=== PATIENT | female | born 1945 | race Caucasian/White ===

== ENCOUNTER 2019-11-21 10:36 | Emergency (ER) | payer MEDICARE, BC, SELFPAY ==
--- NOTE | 2019-11-21 10:50 | DI.RAD.S_ITS ---
PROCEDURE: XR WRIST RT MIN 3V INDICATIONS: deformity TECHNIQUE: 3 views of the wrist were acquired. COMPARISON: None. FINDINGS: Bones: There is a comminuted intra-articular fracture identified involving the distal radial metaphysis. Dorsal impaction is present of the distal fracture fragment. There is slight offset of the articular surface near the radial styloid by approximately 2 mm. A comminuted fracture also is evident involving the distal ulna. No dislocations or suspicious osseous lesions are evident. Soft tissues: No suspicious soft tissue calcifications. IMPRESSION: Comminuted intra-articular fractures of the distal radius and ulna. Dictated by: Eulogoi Vasquez M.D. on 11/21/2019 at 10:26 Approved by: Eulogio Vasquez M.D. on 11/21/2019 at 10:29
[2019-11-21 11:15] VITALS: BP 105/64; PULSE 72; RESP 16; TEMP 37.1; O2SAT 98
--- NOTE | 2019-11-21 11:54 | ED.UPPEXIN ---
HPI - Extremity Injury (Upper) <JUAN Theodore - Last Filed: 11/21/19 13:53> General Chief Complaint: Extremity Injury, Upper Stated Complaint: thinks fractured right wrist Time Seen by Provider: 11/21/19 11:05 Source: patient Mode of arrival: Ambulatory Limitations: no limitations History of Present Illness HPI narrative: The patient is a 74-year-old female nonsmoker with history of hernia who presents with a chief complaint of right wrist injury. She states that she slipped and fell on the way to the bathroom last night at approximately midnight. She took ibuprofen this morning. Her neighbor who is an EMT a retired orthopedic surgeon placed her wrist in a dmitri splint. She is right-hand dominant. She is adamant that this was a slip and fall. Denies any lightheadedness or dizziness. She denies any her head, any neck or back pain. Patient states that she has some pain in her right shoulder, but has full range of motion and is not worried about that. However she is concerned about a possible fracture of her right wrist. Patient later clarifies that she fell down multiple stairs, states approximately 1 flight or so. Modified trauma activated given patient's age, ground level fall with suspected injury. Patient ambulates into the emergency department. She states she has been NPO since this morning in case they need surgery. Related Data Home Medications Medication Instructions Recorded Confirmed MULTIVITAMIN (One Daily 1 tab PO QDAY #0 02/17/11 Multivitamin) [CALCIUM] 1,500 mg PO QDAY #0 02/17/11 Previous Rx's Medication Instructions Recorded oxycodone-acetaminophen [Percocet] 1 - 2 tab PO Q6HP PRN #20 tab 05/11/16 hydrocodone-acetaminophen 1 tab PO Q4-6H PRN #10 tab 11/21/19 ondansetron 4 mg PO Q6H PRN #20 tab 11/21/19 Allergies Allergy/AdvReac Type Severity Reaction Status Date / Time chlorhexidine Allergy Mild RASH Unverified 08/10/17 12:19 [From HIBICLENS] codeine [CODEINE] AdvReac Intermediate profuse Unverified 08/10/17 12:19 sweating irritability difficulty sleeping, dizzy Review of Systems <JUAN Theodore - Last Filed: 11/21/19 13:53> Review of Systems Narrative: GENERAL: Denies chills, fatigue, malaise, fever, sweats. HEENT: Denies sinus pain, ear pain, sore throat, difficulty swallowing, dizziness. RESPIRATORY: Denies dyspnea, cough, wheezing, hemoptysis, sputum. CARDIOVASCULAR: Denies chest pain, palpitations, orthopnea, edema, GASTROINTESTINAL: Denies nausea, vomiting, abdominal pain, diarrhea, constipation, melena. : Denies dysuria, frequency, incontinence, hematuria, urinary retention. MUSCULOSKELETAL: See HPI SKIN: See HPI NEUROLOGIC: Denies weakness, headache, numbness, change in speech, confusion, seizures, incoordination. PSYCHIATRIC: No concerning psychosocial issues. 12 point review of systems is negative except for those stated above Exam <Lillian Hamzah, SHAVON-BC - Last Filed: 11/21/19 13:53> Narrative Exam Narrative: GENERAL: This is a well-nourished, well-developed patient, in no acute distress HEAD: Atraumatic. Normocephalic. No temporal or scalp tenderness. EYES: Pupils equal round and reactive. Extraocular motions intact. No scleral icterus. No injection or drainage. ENT: Nose without bleeding, purulent drainage or septal hematoma. Throat without erythema, tonsillar hypertrophy or exudate. Uvula midline. Airway patent. NECK: Trachea midline. No JVD or lymphadenopathy. Supple, nontender, no meningeal signs. CARDIOVASCULAR: Regular rate and rhythm RESPIRATORY: Clear to auscultation. Breath sounds equal bilaterally. No wheezes, rales, or rhonchi. No cough. No increased respiratory effort. No accessory muscle use. GASTROINTESTINAL: Abdomen soft, non-tender, nondistended. No hepato-splenomegaly, or palpable masses. No guarding. Active bowel sounds all 4 quadrants. EXTREMITIES: Swelling and pain to palpation noted right wrist. No snuffbox pain to palpation. Decreased range of motion all jordan right wrist. Capillary refill less than 2 seconds all fingers right hand. Positive right radial pulse. Full range of motion noted right shoulder. No pain to palpation right elbow or shoulder. BACK: Nontender without deformity or crepitance. No flank tenderness. No pain to CT or L-spine palpation with no palpable step-offs or deformities. NEURO: AOx3. SKIN: Slight ecchymosis noted on humeral head blurry a right shoulder. Ecchymosis noted on palmar aspect of right wrist. Initial Vital Signs Initial Vital Signs: Vital Signs Temperature 98.8 F 11/21/19 11:15 Pulse Rate 72 11/21/19 11:15 Respiratory Rate 16 11/21/19 11:15 Blood Pressure 105/64 11/21/19 11:15 Pulse Oximetry 98 11/21/19 11:15 <Joelle Higuera DO - Last Filed: 11/26/19 07:57> Initial Vital Signs Initial Vital Signs: Vital Signs Temperature 98.8 F 11/21/19 11:15 Pulse Rate 72 11/21/19 11:15 Respiratory Rate 16 11/21/19 11:15 Blood Pressure 105/64 11/21/19 11:15 Pulse Oximetry 98 11/21/19 11:15 Procedures <JUAN Theodore - Last Filed: 11/21/19 13:53> Orthopedic Splinting/Casting Injury #1: Side: right Upper Extremity Injury Location: wrist Upper Extremity Immobilizer: sling/shoulder immobilizer, sugar tong splint and Ziyad wrap Post splinting neuro exam: intact Post splinting vascular exam: intact Placed by: Nursing (with provider) Scores <JUAN Theodore - Last Filed: 11/21/19 13:53> GCS Higinio coma scale eye opening: Spontaneous Higinio coma scale verbal response: Orientated [place] coma scale motor response: Obey commands [place] coma scale total score: 15 Nexus Score for C-Spine Focal Neurologic deficit present: No Midline spinal tenderness present: No Altered level of conciousness present: No Intoxication present: No Distracting Injury Present: No Nexus Criteria for C-spine: 0 Course <JUAN Theodore - Last Filed: 11/21/19 13:53> Orders Ordered: Discontinued Medications Hydrocodone Bitart/Acetaminophen ([place] 5/325) 1 tab PO NOW ONE Stop: 11/21/19 11:38 Last Admin: 11/21/19 11:57 Dose: 1 tab Documented by: AMAN Ondansetron HCl (Zofran Odt) 4 mg SL NOW ONE Stop: 11/21/19 11:38 Last Admin: 11/21/19 11:58 Dose: 4 mg Documented by: AMAN Vital Signs Vital signs: Vital Signs - 8 hr 11/21/19 11:15 11/21/19 13:24 Temperature 98.8 F Pulse Rate 72 74 Respiratory Rate 16 16 Blood Pressure 105/64 110/68 Pulse Oximetry 98 97 <Joelle Higuera DO - Last Filed: 11/26/19 07:57> Orders Ordered: Discontinued Medications Hydrocodone Bitart/Acetaminophen ([place] 5/325) 1 tab PO NOW ONE Stop: 11/21/19 11:38 Last Admin: 11/21/19 11:57 Dose: 1 tab Documented by: AMAN Ondansetron HCl (Zofran Odt) 4 mg SL NOW ONE Stop: 11/21/19 11:38 Last Admin: 11/21/19 11:58 Dose: 4 mg Documented by: AMAN Vital Signs Vital signs: Vital Signs - 8 hr 11/21/19 11:15 11/21/19 13:24 Temperature 98.8 F Pulse Rate 72 74 Respiratory Rate 16 16 Blood Pressure 105/64 110/68 Pulse Oximetry 98 97 MDM - Extremity Injury (Upper) <JUAN Theodore - Last Filed: 11/21/19 13:53> Imaging Data Upper extremity CT: Radiologist's Impression: [address] [place] [address] CT Scan Report Signed Patient: Trixie Flores LMR#: [id number] : 6Acct:[id number] Age/Sex: 74 / FDate of Service: 11/21/19 Loc: ED Accession Number: [id number] Procedure: CT UE RT wo con Ordering Provider: Lillian Goodson PROCEDURE: CT UE RT WO CON INDICATIONS: wrist fracture per ortho TECHNIQUE: Noncontrast 1 mm axial sections acquired through the carpal bones, with coronal and sagittal reformats. COMPARISON: Located Within [facility], CR, XR WRIST RT MIN 3V, 11/21/2019, 10:44. FINDINGS: Image quality: Diagnostic. Bones: There is a comminuted and impacted intra-articular fracture of the distal radial metaphysis with a vertical and transverse fracture lines present. Slight dorsal angulation of the distal fracture fragments are noted. Slight articular surface offset along the radial styloid of portion of the fracture is evident by 1-2 mm. There is a fracture line extending into the distal radioulnar joint. A comminuted fracture of the distal ulna is also evident. No additional fractures are present. No suspicious osseous lesions are identified. There is no dislocation. Soft tissues: Soft tissue swelling of the wrist is present. No unexpected radiopaque foreign bodies are evident. Please note that the ligamentous, tendinous, and cartilaginous structures of the wrist are not adequately evaluated on CT. No significant muscle atrophy is appreciated. No soft tissue masses are identified. IMPRESSION: Comminuted intra-articular distal radius and ulna fractures. Dictated by: Eulogio Vasquez M.D. on 11/21/2019 at 11:58 Approved by: Eulogio Vasquez M.D. on 11/21/2019 at 12:00 Extremity x-ray #1: Radiologist's Impression: [address] [place] [address] XRay Report Signed Patient: Trixie Flores LMR#: [id number] : 6Acct:[id number] Age/Sex: 74 / FDate of Service: 11/21/19 Loc: ED Accession Number: [id number] Procedure: XR wrist RT min 3V Ordering Provider: Joelle Higuera D.O. PROCEDURE: XR WRIST RT MIN 3V INDICATIONS: deformity TECHNIQUE: 3 views of the wrist were acquired. COMPARISON: None. FINDINGS: Bones: There is a comminuted intra-articular fracture identified involving the distal radial metaphysis. Dorsal impaction is present of the distal fracture fragment. There is slight offset of the articular surface near the radial styloid by approximately 2 mm. A comminuted fracture also is evident involving the distal ulna. No dislocations or suspicious osseous lesions are evident. Soft tissues: No suspicious soft tissue calcifications. IMPRESSION: Comminuted intra-articular fractures of the distal radius and ulna. Dictated by: Eulogio Vasquez M.D. on 11/21/2019 at 10:26 Approved by: Eulogio Vasquez M.D. on 11/21/2019 at 10:29 MDM Narrative Medical decision making narrative: The patient is a 74-year-old female who presents after a fall. She initially states that she had a slip and fall on the way to the bathroom, then states that she rolled down stairs as well. She denies any loss of consciousness, lightheadedness or dizziness. Overall her exam is well, GCS 15, C-spine cleared by nexus criteria. This occurred last night approximately midnight. She is noted to have a comminuted intra-articular distal radius and ulna fracture. Patient repeatedly declines any other pain, states no other imaging is needed. Patient repeatedly denies any other injuries or pain. I spoke with Dr. Major from [facility], who kindly viewed the patient's x-rays. CT was requested and performed. Patient was placed in a sugar-tong splint as per Dr. Major recommendations to follow up with Orthopedics. Patient tolerated it well in the emergency department. She is eating and drinking, overall in no acute distress. Prescription of [place] provided. Discussed at length return precautions the emergency department including decreased circulation or fingers. Patient has no questions or concerns upon discharge and states understanding return precautions as well as follow-up care with PCP as well as [facility]. Discharge Plan Departure Patient Disposition: Home Clinical Impression: Fracture of wrist Qualifiers: Encounter type: initial encounter Fracture type: closed Laterality: right Qualified Code(s): S62.101A - Fracture of unspecified carpal bone, right wrist, initial encounter for closed fracture Discharge Date/Time: 11/21/19 13:25 Instructions: How to Use a Sling, DI for Wrist Fracture, How To Perform RICE (Rest, Ice, Compress, Elevate), How to Take Care of Your Splint Activity Restrictions/Additional Instructions: Thank you for trusting us with your care today. I am sorry that you fell and injured your wrist. Unfortunately you have fractures of both bones in your forearm which go into the joint. I spoke with Dr. Major from [facility], who was able to view your x-rays. She would like you to follow-up in clinic. I have given you the contact information for Dr. Major and [facility]. Please use rest ice compression elevation. I sent 2 prescriptions to [facility]. This includes a pain medicine and a nausea medicine. I have given you a prescription of a narcotic for pain. Be aware that this can be constipating and sedating. I encouraged taking with a stool softener, pushing fluids and fiber. Do not take and drive, operate heavy machinery, etc. Do not combine it with any other sedating substances such as alcohol. The combination of narcotics and alcohol and/or other sedatives can be lethal. Please come back to emergency department for any acute concerns including decreased circulation to your fingers etcetera Prescriptions: New hydrocodone-acetaminophen 5-325 mg tablet 1 tab PO Q4-6H PRN (Reason: pain) Qty: 10 RF: 0 ondansetron 4 mg tablet,disintegrating 4 mg PO Q6H PRN (Reason: nausea and vomiting) Qty: 20 RF: 0 No Action [CALCIUM] 1,500 mg PO QDAY Qty: 0 RF: 0 MULTIVITAMIN (One Daily Multivitamin) 1 tab PO QDAY Qty: 0 RF: 0 oxycodone-acetaminophen [Percocet] 5 MG/325 MG tablet 1 - 2 tab PO Q6HP PRNQty: 20 RF: 0 Referrals: [facility] [Provider Group] Kai Gutierrez MD [Primary Care Provider] - Any Major MD [Physician] - <Joelle Higuera DO - Last Filed: 11/26/19 07:57> Cosign ED Attending Kaylan Attestation: I was immediately available in the department for consultation. Documentation has been reviewed. I agree with assessment and plan.
[2019-11-21] MEDS: HYDROCODONE/ACET 5/325 TABLET 1 TAB PO (11:57)
[2019-11-21] MEDS: ONDANSETRON 4 MG ODT SL (11:58)
--- NOTE | 2019-11-21 12:30 | DI.CT.S_ITS ---
PROCEDURE: CT UE RT WO CON INDICATIONS: wrist fracture per ortho TECHNIQUE: Noncontrast 1 mm axial sections acquired through the carpal bones, with coronal and sagittal reformats. COMPARISON: [facility], CR, XR WRIST RT MIN 3V, 11/21/2019, 10:44. FINDINGS: Image quality: Diagnostic. Bones: There is a comminuted and impacted intra-articular fracture of the distal radial metaphysis with a vertical and transverse fracture lines present. Slight dorsal angulation of the distal fracture fragments are noted. Slight articular surface offset along the radial styloid of portion of the fracture is evident by 1-2 mm. There is a fracture line extending into the distal radioulnar joint. A comminuted fracture of the distal ulna is also evident. No additional fractures are present. No suspicious osseous lesions are identified. There is no dislocation. Soft tissues: Soft tissue swelling of the wrist is present. No unexpected radiopaque foreign bodies are evident. Please note that the ligamentous, tendinous, and cartilaginous structures of the wrist are not adequately evaluated on CT. No significant muscle atrophy is appreciated. No soft tissue masses are identified. IMPRESSION: Comminuted intra-articular distal radius and ulna fractures. Dictated by: Eulogio Vasquez M.D. on 11/21/2019 at 11:58 Approved by: Eulogio Vasquez M.D. on 11/21/2019 at 12:00
[2019-11-21 13:24] VITALS: BP 110/68; PULSE 74; RESP 16; O2SAT 97
== END 2019-11-21 13:25 | disposition home or self-care (01) ==
PROVIDERS: Emergency Provider Nurse Practitioner Family; Family Provider Specialist; PCP Family Medicine
DX: S62.101A Fracture of unspecified carpal bone, right wrist, initial encounter for closed fracture (principal); W01.0XXA Fall on same level from slipping, tripping and stumbling without subsequent striking against object, initial encounter
CPT/HCPCS: 29125; 73110; 73200; 99284

== ENCOUNTER → 2019-11-26 13:12 | Outpatient (CLI) | payer MEDICARE, BC, SELFPAY ==
[2019-11-27 20:35] LABS: COVID19 Sendout Not Detected (Not Detect)
== END ==
PROVIDERS: Family Provider Specialist; PCP Family Medicine; Visit Provider Physician Assistant
DX: Z01.812 Encounter for preprocedural laboratory examination (principal)
CPT/HCPCS: 87635

== ENCOUNTER 2019-11-29 13:46 | Day surgery (SDC) | payer MEDICARE, BC, SELFPAY ==
[2019-11-29] VITALS (13 sets, daily range): BP systolic 105–142; BP diastolic 53–98; PULSE 55–78; RESP 11–24; TEMP 36.2–36.8; O2SAT 94–99; BMI 20.9
[2019-11-29] MEDS: LACTATED RINGERS 1,000 ML 42 ML IV (14:29)
[2019-11-29] MEDS: CEFAZOLIN 2 GM/100 ML FROZ.PIGGY IV (14:49)
--- NOTE | 2019-11-29 14:50 | PM.PREOP ---
Pre-operative Note COVID-19 COVID-19 status: Negative Interval Note History & Physical reviewed/Exam performed by Physician: Yes Changes to H&P: No H&P completed within 30 days and has changed as indicated here:: Lungs clear, cor regular rate and rhythm, abdomen benign, right upper extremity splint in place, slight numbness in the hand, able to fire finger flexors and extensors
--- NOTE | 2019-11-29 15:20 | SUR.OPER ---
Supine on padded OR bed, head on pillow, left arm secured on padded arm boards at <90 degrees abduction, right arm draped free on black arm table, legs uncrossed, safety belt at thigh, tape over blanket over lower legs.
[2019-11-29] MEDS: BUPIVACAINE 0.5% (PF) VIAL 30 ML INJ (15:34)
[2019-11-29] MEDS: ACETAMINOPHEN IV 1,000 MG/100 ML VIAL 400 MG IV (16:01)
--- NOTE | 2019-11-29 16:45 | P.OP_ITS ---
Operative Date/Time/Diagnoses Date of procedure: 11/29/19 Time of procedure: 14:59 Pre-op diagnosis: right distal radius and ulna fracture Post-op diagnosis: same Procedure & Clinicians Procedure: Open reduction internal fixation right distal radius Same procedure as scheduled: Yes Indications: This is a 74-year-old female who fell on her outstretched right wrist and noted the acute onset of severe right wrist pain. She sustained a comminuted right distal radius fracture and ulnar fracture and she is brought to the operating room for open reduction internal fixation. Surgeon: Any Major Automotive Project Engineer: Antwon Barclay Anesthesia Type: General Operative Notes Findings: Severely comminuted right distal radius fracture. Acceptable reduction and fixation. Displaced ulnar fracture was treated closed with acceptable reduction Closure Type: primary Prosthetic devices, grafts, tissues, transplants, or devices: Arthrex distal radius plate. Estimated Blood Loss (mL): 150 Blood products transfused: none Tourniquet time (min): 75 Procedure in detail: Patient is brought to the operating room. Antibiotics were given and a time-out was performed. The right upper extremity was prepped and draped in a standard sterile fashion. A checked the radius initially with a x- ray checked the overall reduction and alignment. Tourniquet was inflated to 250 mm of mercury. A volar radial incision was made slightly curved over the wrist crease. Dissection was carried out through skin and subcutaneous tissues. The flexor carpi radialis was carefully mobilized to incise the anterior sheath and the posterior sheath and then stripped the muscle off of the distal radius. She had a severely comminuted distal radius fracture with a significant split of the distal radius running proximally. Dissection was carried out down to the fracture site. Fracture was meticulously reduced including placing K-wires to stabilize the fracture site. An Arthrex distal radius volar plate was then carefully placed. The fracture alignment position of the plate and fixation was meticulously checked with fluoroscopy. The wound was meticulously irrigated with normal saline. Marcaine was carefully injected. Fracture reduction was carefully checked with fluoroscopy as well as plate position. I did usual some locking screws in the distal radius because of the split extending proximally in the distal radius. There was acceptable reduction of the distal articular cartilage surface and acceptable stabilization. Then did a range of motion check pronation and supination radial and ulnar deviation. Specifically checked the ulnar fracture and felt that there was adequate reduction and stability of the distal ulna without supplemental internal fixation. Additional Marcaine was injected and the volar plate was covered with the muscle. Wound was closed with interrupted Vicryl and nylon. Patient was placed in a short-arm splint. She tolerated the procedure well. She was transferred recovery room in satisfactory condition. Complications none. Complications: none Post-operative Condition: stable Disposition: Acute Care Plan for aftercare: Discharge to home with follow-up in 10 days or so. Placed in splint x-rays in clinic AP and lateral of the wrist and probable short-arm cast.
--- NOTE | 2019-11-29 17:09 | SUR.PHASEI ---
Pt received to PACU at 1655 after general anesthesia. Oral airway in place. Jaw thrust required. Report received from Garrett RN. 1703 - Oral airway removed. No further airway assistance required. Pt drowsy, but awakens easily. Pt able to wiggle right fingers and thumb. Denies numbness or tingling. Denies pain. Fingers warm with good capillary refill.
--- NOTE | 2019-11-29 17:18 | SUR.PHASEI ---
[id number] Report to [facility].
[2019-11-29] MEDS: OXYCODONE IR 5 MG TABLET PO ×2 (17:26→18:15)
--- NOTE | 2019-11-29 17:32 | SUR.PHASEI ---
Gave patient po pain medication for c/o 7/ pain.
[2019-11-29] MEDS: fentaNYL 100 MCG/2 ML INJ IV (17:38)
--- NOTE | 2019-11-29 17:41 | SUR.PHASEI ---
gave IV fentanyl for c/o moderate pain.
--- NOTE | 2019-11-29 18:38 | SUR.PHASEII ---
Patient traveling by personal boat to [facility]. Encouraged patient to stay overnight.
--- NOTE | 2019-11-29 18:39 | SUR.PHASEII ---
Reviewed D/C with patient. gave 2nd po pain med for c/o 11/08 pain.
== END 2019-11-29 18:38 | disposition home or self-care (01) ==
PROVIDERS: Family Provider Specialist; PCP Family Medicine; Referring Provider Orthopaedic Surgery; Visit Provider Orthopaedic Surgery
PROC: (CPT 25609; principal; 2019-11-29 15:15)
DX: S52.571A Other intraarticular fracture of lower end of right radius, initial encounter for closed fracture (principal); S52.601A Unspecified fracture of lower end of right ulna, initial encounter for closed fracture; W18.30XA Fall on same level, unspecified, initial encounter
CPT/HCPCS: 25609; J0131; J0690; J1100; J2405; J2704; J3010